=== PATIENT | female | born 1940 ===

== ENCOUNTER 2016-09-13 07:22 | Inpatient (IN) | payer MEDICARE, OTHER ==
[2016-09-09 12:09] VITALS: BMI 24.1
[2016-09-13] MEDS ORDERED: Lactated Ringer's 1,000 ML IV ONE ×2 (11:05→14:50)
[2016-09-13] MEDS ORDERED: Midazolam 2 MG/2 ML VIAL ONE (11:52)
[2016-09-13] MEDS ORDERED: ePHEDrine 50 mg/ml Inj ONE (11:52)
[2016-09-13] MEDS ORDERED: Propofol 10 mg/ml Inj (20 ML) ONE ×2 (11:52→14:48)
[2016-09-13] MEDS ORDERED: Succinylcholine 200 mg/10 ml Inj IV ONE (11:54)
[2016-09-13] MEDS ORDERED: Rocuronium 10 mg/ml (5 ml) ONE (12:38)
[2016-09-13] MEDS ORDERED: Dexamethasone 4 mg/1 ml ONE (13:08)
[2016-09-13] MEDS ORDERED: Labetalol 5mg/ml (4ml) ONE (13:41)
[2016-09-13] MEDS ORDERED: Ropivacaine 0.5% 30ML IV ONE (14:22)
[2016-09-13] MEDS ORDERED: Bupivacaine 0.5% 50 ML IJ ONE ×2 (14:48)
--- NOTE | 2016-09-13 15:29 | PCM.SURG1 ---
Surgeon's Initial Post Op Note - Surgeon's Notes Surgeon: Judy Sanchez MD Code Enforcement Officer: Umair Chiang MD; Bryan JACK; Aixa Elliott PA-C Type of Anesthesia: General Endo Pre-Operative Diagnosis: Right ankle bimalleolar fx Operative Findings: See op report Post-Operative Diagnosis: Same as pre-op Operation Performed: ORIF Right bimalleolar fx Specimen/Specimens Removed: None Estimated Blood Loss: EBL {In ML}: 20 Date of Surgery/Procedure: 09/13/16 Time of Surgery/Procedure: 13:30
[2016-09-13] MEDS ORDERED: Oxycodone/Acetaminophen 5/325 mg Tab PO PRN (15:38)
[2016-09-13] MEDS ORDERED: HYDROmorphone 0.5 mg/0.5 ml ISec ONE (15:47)
[2016-09-13] MEDS ORDERED: HYDROmorphone 0.5 mg/0.5 ml ISec IVP PRN (15:49)
[2016-09-13] MEDS ORDERED: Bupivacaine 0.5% Inj(30mL) ONE (15:56)
--- NOTE | 2016-09-13 15:59 | PCM.ANESB2 ---
Popliteal Nerve Block - Popliteal Nerve Block Date of Procedure: 09/13/16 Anesthesiologist: Sergei Pre-Procedure Diagnosis: ankle fracture right Post-Procedure Diagnosis: same Procedure Performed: Popliteal Nerve Block Right - Procedure Popliteal Nerve Block: This procedure was explained to the patient that it is for post-operative pain management. Consent was obtained after a thorough discussion with the patient regarding the benefits and possible complications of local anesthetic block of the sciatic nerve at the popliteal level. The patient was brought to the operating room and standard monitors are applied. Time-out was held with the circulating nurse to confirm the correct surgery and the appropriate block. After applying oxygen by nasal cannula and administering IV Sedation, patient's operative leg was gently raised and supported and the groove in between the biceps femoris and vastus lateralis muscles was carefully palpated. The skin approximately 8cm above the popliteal crease was then marked. The ultrasound transducer was then applied to the posterior thigh approximately 8cm above the popliteal crease in the transverse plane and the sciatic nerve before its division was visualized lateral to the popliteal artery and in between the bicep femoris and semimembranosus/semitendinosus muscles. After identification, the lateral portion of the thigh was prepped with Betadine solution three times and Lidocaine 1% was injected subcutaneously for topical anesthesia. At this point, a # 21 gauge Stimuplex insulated 4 inch needle was inserted into pre-marked area and advanced in a perpendicular direction. The needle was inserted above the ultrasound transducer in-plane towards the sciatic nerve in a [id number] direction. Needle advancement was performed carefully under direct ultrasound visualization. Nerve stimulator was used and dorsiflexion of the right foot was elicited at a current of _0.4____ MA. After repeated negative aspiration, _20____cc of _0.5____ % _ropivicaine was injected and this was flowed with cc of % . Under ultrasound guidance the local anesthetics were observed tenting the epidural sheath and surrounding the roots of the sciatic nerve. The needle was removed intact and sterile dressing was applied. The patient tolerated the popliteal nerve block well with stable vital signs and was subsequently prepared for the surgery.
--- NOTE | 2016-09-13 17:15 | RAD ---
PROCEDURE: Intraoperative Fluoroscopy. HISTORY: ORIF RIGHT ANKLE FINDINGS: Approximately 67.5 seconds of fluoroscopy time utilized during this procedure.
[2016-09-13 21:21] LABS: PARTIAL THROMBOPLASTIN TIME 27.9 SECONDS (23.3-32.5)
--- NOTE | 2016-09-14 08:47 | CP.PCM.HP ---
<Yuliya Jasmine - Last Filed: 09/14/16 10:13> History of Present Illness - History of Present Illness History of Present Illness: 75yo F with PMHx HTN, HLD admitted for right ankle fx. Pt evaluated at [facility] ED and right ankle XR showed Ankle mortise disruption with fractures of the medial and lateral malleoli and possible posterior malleolus fracture. Ortho was c/s in ED and to follow as outpt. Pt had ORIF performed 09/13/[address] Sanchez and tolerated procedure well PMHx: as above SHx: ORIF FHx: NC Allergies: NKDA Social Hx: denies x3 Present on Admission - Present on Admission Any Indicators Present on Admission: No Review of Systems - Constitutional Constitutional: absent: Chills, Fever - EENT Eyes: absent: Change in Vision - Cardiovascular Cardiovascular: absent: Chest Pain - Respiratory Respiratory: absent: Dyspnea - Gastrointestinal Gastrointestinal: absent: Abdominal Pain, Diarrhea, Nausea, Vomiting - Genitourinary Genitourinary: absent: Dysuria, Hematuria - Musculoskeletal Musculoskeletal: Other (right ankle pain). absent: Back Pain - Neurological Neurological: absent: Headaches Past Patient History - Infectious Disease Hx of Infectious Diseases: None - Past Medical History & Family History Past Medical History?: Yes - Past Social History Smoking Status: Former Smoker - CARDIAC Hx Cardiac Disorders: Yes Hx Hypercholesterolemia: Yes Hx Hypertension: Yes - PULMONARY Hx Respiratory Disorders: No - NEUROLOGICAL Hx Neurological Disorder: No - HEENT Hx HEENT Problems: No - RENAL Hx Chronic Kidney Disease: No - ENDOCRINE/METABOLIC Hx Endocrine Disorders: No - HEMATOLOGICAL/ONCOLOGICAL Hx Blood Disorders: Yes Hx Cancer: Yes (BREAST) - INTEGUMENTARY Hx Dermatological Problems: No - MUSCULOSKELETAL/RHEUMATOLOGICAL Hx Musculoskeletal Disorders: Yes Hx Arthritis: Yes Hx Back Pain: Yes Other/Comment: MUSCLE WEKNESS.LIMIT JOINT MOTION - GASTROINTESTINAL Hx Gastrointestinal Disorders: No - GENITOURINARY/GYNECOLOGICAL Hx Genitourinary Disorders: No - PSYCHIATRIC Hx Psychophysiologic Disorder: No Hx Substance Use: No - SURGICAL HISTORY Hx Surgeries: Yes Hx Section: Yes Hx Mastectomy: Yes (LEFT) - ANESTHESIA Hx Anesthesia: Yes Hx Anesthesia Reactions: No Hx Malignant Hyperthermia: No Has any member of the family had a problem w/ anesthesia?: No Meds Allergies/Adverse Reactions: Allergies Allergy/AdvReac Type Severity Reaction Status Date / Time No Known Allergies Allergy Verified 08/28/16 12:17 Physical Exam - Constitutional Appears: Non-toxic, No Acute Distress - Head Exam Head Exam: NORMAL INSPECTION - Eye Exam Eye Exam: Normal appearance - ENT Exam ENT Exam: Mucous Membranes Moist - Neck Exam Neck exam: Positive for: Normal Inspection - Respiratory Exam Respiratory Exam: Clear to Auscultation Bilateral - Cardiovascular Exam Cardiovascular Exam: REGULAR RHYTHM - GI/Abdominal Exam GI & Abdominal Exam: Normal Bowel Sounds, Soft - Extremities Exam Extremities exam: Positive for: normal inspection. Negative for: pedal edema Additional comments: cast to right ankle cap refill < 2 sec - Neurological Exam Neurological exam: Alert, Oriented x3 Additional comments: sensation/motor grossly intact to right toes - Skin Skin Exam: Dry, Warm Results - Vital Signs Recent Vital Signs: Last Vital Signs Temp 98.1 F 09/14/16 07:24 Pulse 75 09/14/16 07:24 Resp 18 09/14/16 07:24 BP 131/66 09/14/16 07:24 Pulse Ox 95 09/14/16 07:24 - Labs Result Diagrams: 09/14/16 09:40 Labs: Laboratory Results - last 24 hr 09/13/16 20:30 PT 10.6 INR 1.02 APTT 27.9 Assessment & Plan - Assessment and Plan (Free Text) Assessment: 75yo F with PMHx HTN, HLD admitted for right ankle fx. Right ankle fx -s/p ORIF -right ankle XR: Ankle mortise disruption with fractures of the medial and lateral malleoli and possible posterior malleolus fracture. -pain control, will decrease from q4hr to q6hr as tolerated HTN c/w home meds: amlodipine, Diovan HLD -c/w statin DVT ppx Dispo: TCU Decision To Admit - Pt Status Changed To: Hospital Disposition Of: Inpatient - Admit Certification Admit to Inpatient:: After my assessment, the patient will require hospitalization for at least two midnights. This is because of the severity of symptoms shown, intensity of services needed, and/or the medical risk in this patient being treated as an outpatient. - . Bed Request Type: Med/Surg Admitting Physician: James Soriano <James Soriano - Last Filed: 09/18/16 21:23> Results - Vital Signs Recent Vital Signs: Last Vital Signs Temp 98.4 F 09/18/16 21:20 Pulse 70 09/18/16 21:20 Resp 20 09/18/16 21:20 BP 114/76 09/18/16 21:20 Pulse Ox 96 09/18/16 21:20 - Labs Result Diagrams: 09/17/16 07:30 09/17/16 07:30 Labs: Laboratory Results - last 24 hr 09/18/16 09/18/16 09/18/16 06:14 11:06 16:16 POC Glucose (mg/dL) 155 H 131 H 128 H Assessment & Plan - Assessment and Plan (Free Text) Plan: I was present during evaluation and personally examined patient. Discussed with Dr Yuliya villasenor plans of care, pain mgt and phys therapy
--- NOTE | 2016-09-14 08:48 | CP.PCM.PN ---
Subjective - Date & Time of Evaluation Date of Evaluation: 09/14/16 Time of Evaluation: 08:30 - Subjective Subjective: 75 yo female patient was seen at bedside this morning 1 day s/p ORIF of Right bimalleolar fracture. Patient was resting comfortably in bed with Right lower extremity elevated. Dressing to right lower extremity remains clean dry and intact. Patient denies of any acute overnight distress. Patient was advised to call Dr. Sanchez for scheduling upon discharge. Patient denies of any N/V/F/C or SOB today. Objective - Vital Signs/Intake and Output Vital Signs (last 24 hours): Temp Pulse Resp BP Pulse Ox 98.1 F 75 18 131/66 95 09/14/16 07:24 09/14/16 07:24 09/14/16 07:24 09/14/16 07:24 09/14/16 07:24 - Medications Medications: Current Medications Acetaminophen (Tylenol 325mg Tab) 650 mg PO Q4 PRN PRN Reason: Pain, Mild (1-3) Amlodipine Besylate (Norvasc) 5 mg PO DAILY [facility] Last Admin: 09/14/16 08:23 Dose: 5 mg Atorvastatin Calcium (Lipitor) 40 mg PO HS [facility] Last Admin: 09/13/16 22:40 Dose: Not Given Donepezil HCl (Aricept) 5 mg PO HS [facility] Last Admin: 09/13/16 22:40 Dose: Not Given Enoxaparin Sodium (Lovenox) 40 mg SC DAILY [facility] PRN Reason: Protocol Hydrochlorothiazide (Microzide) 12.5 mg PO DAILY [facility] Last Admin: 09/14/16 08:23 Dose: 12.5 mg Hydromorphone HCl (Dilaudid) 0.5 mg IVP Q5M PRN PRN Reason: Pain, moderate (4-7) Last Admin: 09/13/16 15:40 Dose: 0.5 mg Meclizine HCl (Antivert) 25 mg PO Q6 PRN PRN Reason: Nausea/Vomiting Naproxen (Naprosyn Tab) 375 mg PO BID PRN PRN Reason: pain Oxycodone/Acetaminophen (Percocet 5/325 Mg Tab) 1 tab PO Q4 PRN PRN Reason: Pain, moderate (4-7) Stop: 09/16/16 15:39 Oxycodone/Acetaminophen (Percocet 5/325 Mg Tab) 2 tab PO Q4 PRN PRN Reason: Pain, severe (8-10) Stop: 09/16/16 15:39 Pneumococcal Polyvalent Vaccine (Pneumovax 23 Vaccine) 0.5 ml IM .ONCE ONE Stop: 09/14/16 09:01 Valsartan (Diovan) 160 mg PO DAILY [facility] Last Admin: 09/14/16 08:23 Dose: 160 mg - Labs Labs: PT 10.6 SECONDS (9.6-11.2) 09/13/16 20:30 INR 1.02 (0.92-1.08) 09/13/16 20:30 APTT 27.9 SECONDS (23.3-32.5) 09/13/16 20:30 - Constitutional Appears: Well, Non-toxic, No Acute Distress - Extremities Exam Additional comments: Right lower extremity posterior splint remains clean, dry and intact - Neurological Exam Neurological Exam: Alert, Awake, Oriented x3 - Psychiatric Exam Psychiatric exam: Normal Affect, Normal Mood - Skin Skin Exam: Normal Color, Warm Assessment and Plan - Assessment and Plan (Free Text) Assessment: 75 yo female patient 1 day s/p ORIF of right ankle bimalleolar fx Plan: Patient was seen, evaluated and treated with all questions and concerns addressed labs and vitals reviewed discussed in detail with Dr. Sanchez Patient was advised to keep the dressing clean, dry and intact until she sees Dr. Sanchez Patient safe to be discharged once cleared by Physical therapy Patient will follow up with Dr. Sanchez upon discharge
[2016-09-14] MEDS ORDERED: HYDROCHLOROTHIAZIDE PO SCH (09:00)
[2016-09-14] MEDS ORDERED: Pneumococcal 23-Valent Vaccine IM ONE (09:00)
[2016-09-14] MEDS ORDERED: VALSARTAN PO SCH (09:00)
[2016-09-14 10:00] LABS: BASO % 0.4 % (0.0-2.0); EOS % 0.1 % (0.0-4.0); HEMATOCRIT 36.8 % (34.0-47.0); LYMPH # 1.7 K/uL (1.0-4.3); LYMPH % 13.7 % (20.0-40.0); MEAN CELL VOLUME 88.6 fl (81.0-99.0); MEAN CORPUSCULAR HEMOGLOBIN 28.8 pg (27.0-31.0); MEAN CORPUSCULAR HGB CONC 32.5 g/dL (33.0-37.0); MEAN PLATELET VOLUME 8.1 fl (7.2-11.7); MONO # 0.8 K/uL (0.0-0.8); MONO % 6.1 % (0.0-10.0); NEUT # 9.8 K/uL (1.8-7.0); NEUT % 79.7 % (50.0-75.0); RED CELL DISTRIBUTION WIDTH 13.6 % (11.5-14.5); WHITE BLOOD COUNT 12.3 K/uL (4.8-10.8)
[2016-09-14 10:16] LABS: ALKALINE PHOSPHATASE 94 U/L (38-126); ALT/SGPT 17 U/L (9-52); AST/SGOT 22 U/L (14-36); BILIRUBIN,TOTAL 0.4 mg/dl (0.2-1.3); BLOOD UREA NITROGEN 20 mg/dl (7-17); CALCIUM 9.4 mg/dL (8.4-10.2); CARBON DIOXIDE 25 mmol/L (22-30); CHLORIDE 100 mmol/L (98-107); GFR AFRICAN-AMERICAN > 60; GLUCOSE,RANDOM 256 mg/dL (65-105); POTASSIUM 4.5 MMOL/L (3.6-5.0); SODIUM 137 mmol/l (132-148); TOTAL PROTEIN 6.8 G/DL (6.3-8.2)
--- NOTE | 2016-09-14 13:50 | RAD ---
PROCEDURE: Right Ankle Radiographs. HISTORY: s/p right ankle ORIF COMPARISON: No preoperative studies available. FINDINGS: BONES: Satisfactory position alignment of major fracture fragments distal tibia and fibula. Orthopedic hardware in satisfactory position including febrile air endplate and multiple partially fenestrated screws distal tibia. JOINTS: Mild degenerative changes talotibial and talofibular joint spaces. SOFT TISSUES: Normal. OTHER FINDINGS: None. IMPRESSION: No acute findings related to/accounting for the clinical presentation.
[2016-09-15] MEDS: Oxycodone/Acetaminophen 5/325 mg Tab PO PRN (04:51)
[2016-09-15 07:03] LABS: HEMATOCRIT 36.2 % (34.0-47.0); MEAN CELL VOLUME 88.1 fl (81.0-99.0); MEAN CORPUSCULAR HEMOGLOBIN 28.7 pg (27.0-31.0); MEAN CORPUSCULAR HGB CONC 32.6 g/dL (33.0-37.0); RED CELL DISTRIBUTION WIDTH 13.3 % (11.5-14.5)
[2016-09-15 07:08] LABS: BLOOD UREA NITROGEN 16 mg/dl (7-17); CARBON DIOXIDE 30 mmol/L (22-30); CHLORIDE 98 mmol/L (98-107); GFR AFRICAN-AMERICAN > 60; GLUCOSE,RANDOM 187 mg/dL (65-105); POTASSIUM 4.2 MMOL/L (3.6-5.0); SODIUM 137 mmol/l (132-148)
--- NOTE | 2016-09-15 09:10 | OP ---
PROCEDURE DATE: 09/13/2016 SURGEON: Dr. Sanchez ASSISTANTS: Umair Garnett, PGY-2 and Mami Hendrickson, PGY-1 IRRIGATOR GRAVITY FLOW: Dr. Mai ANESTHESIA: General endo and regional block. PREOPERATIVE DIAGNOSIS: Right ankle closed bimalleolar fracture. POSTOPERATIVE DIAGNOSIS: Right ankle closed bimalleolar fracture. NAME OF THE PROCEDURE: Open reduction with internal fixation of the right ankle. INDICATIONS: The patient is a 75-year-old female with the above diagnosis. This patient slipped and fell and acquired a right ankle fracture approximately 1 month ago, which needed surgery to stabilize her ankle. The patient signed the consent after careful explanation of risks, benefits, complications and alternatives for surgical procedure. No guarantees were given nor implied. One gram of Ancef IV was given to patient prior to the surgery. N.p.o. status was confirmed prior to taking patient to the OR. PREPARATION: The patient was brought to the operating room and placed on the operating room table in supine position. A well-padded pneumatic thigh tourniquet was placed to the patient's right lower extremity. After induction of general anesthesia, the right lower extremity was then prepped and draped in usual sterile manner. Esmarch was utilized to exsanguinate the patient's right lower extremity. Pneumatic thigh tourniquet was then inflated to 250 mmHg and procedure began. DESCRIPTION OF PROCEDURE: Open reduction with internal fixation of the right ankle. Attention was directed to the lateral aspect of the right ankle and the fracture site was confirmed under the intraoperative fluoroscopy. An approximately 7 cm linear longitudinal incision was made overlying fibula centered right over the bone. At this time, the incision was carried deep using sharp and blunt dissection, taking care to retract all vital neurovascular structures. All bleeders were cauterized and ligated as necessary. At the level of the periosteum, a sharp periosteal incision was made overlying the distal fibula to allow exposure to the fracture site. The periosteum was reflected with a sharp periosteal elevator to allow for visualization of the fracture site at this time. Next, utilizing bone clamp, the fracture site was reduced bringing the distal fibula back out to length. At this time, it was noted that there was comminution of the fracture site and a lag screw was placed from anteroproximal to posterodistal with excellent fixation. However, patient's bone quality was really poor. At this time, a Synthes 4-hole 2.7 mm LCP plate was placed over the fracture site and utilizing standard AO technique and plate holes were filled with 2.7 locking screws and 3.5 cortex screw. At this time, multiple irrigations were performed. All the screw locations were confirmed under the intraoperative fluoroscopy. Attention was redirected to the medial aspect of the distal tibia of the right lower extremity. Utilizing a #15 blade, an approximately 5 cm curvilinear incision was made overlying the tibia staying centered right over the bone. At this time , the incision was carried deep using sharp and blunt dissection, taking care to retract all vital neurovascular structures. All bleeders were cauterized and ligated as necessary. At this level of the periosteum, a sharp periosteal incision was made overlying the distal tibia to allow exposure to the fracture site. The periosteum was reflected with a sharp periosteal elevator to allow for visualization of the fracture site. Next, utilizing bone clamp, the fracture site was reduced bringing the distal medial malleolus back out to length and was temporarily fixated with 2 K-wires. Next, based on AO technique and principal, the fracture site was fixed with 4 mm and 3.5 mm cannulated screws. Next, temporarily fixated K-wires were removed. The screw locations were confirmed under intraoperative fluoroscopy and once again patient's bone quality was really poor, so could not have excellent compression. The surgical site was irrigated with a copious amount of normal sterile saline. Deep tissues were reapproximated with #3-0 and 4-0 Vicryl and skin was reapproximated with #4-0 nylon in vertical mattress suture technique. Medial aspect of the right ankle was infiltrated with 10 mL of 0.5% Marcaine plain. Right lower extremity was dressed with Xeroform, 4 x 4, Kerlix and posterior splint. The patient will be nonweightbearing for 6 weeks. The attending was present during the case. POSTOPERATIVE CONDITION: The patient tolerated the anesthesia and procedure well and was escorted to the recovery room with vital signs stable and neurovascular status intact to the right foot. The patient will follow with Dr. Sanchez. Umair Garnett DPM Latanya Sanchez MD cc: [id number] TT: 09/15/2016 07:45:08 en MTDD
[2016-09-15] MEDS: Enoxaparin 40 mg Syringe SC SCH (09:13)
--- NOTE | 2016-09-15 09:16 | OP ---
PROCEDURE DATE: 09/13/2016 SURGEON: Dr. Sanchez. TRANSPORTATION CLERK: Umair Garnett, PGY-2; Mami Hendrickson, PGY-1. BOAT TESTER: Dr. Laura. ANESTHESIA: General anesthesia and regional block. PREOPERATIVE DIAGNOSIS: Right ankle closed bimalleolar fracture. POSTOPERATIVE DIAGNOSIS: Right ankle closed bimalleolar fracture. NAME OF THE PROCEDURE: Open reduction with internal fixation of the right ankle. INDICATIONS: The patient is a 75-year-old female with the above diagnosis. This patient slipped and fell and acquired right ankle fracture approximately 1 month ago which needed surgery to stabilize h er ankle. The patient signed the consent after careful explanation of risks, benefits, complication and alternative for surgical procedure. No guarantees were given nor implied. 1 gram of Ancef IV wa s given to the patient half hour prior to the procedure. N.p.o. status was confirmed prior to taking patient to the OR. PREPARATION: The patient was brought to the operating room and placed on the operating room table in supine position. A well-padded pneumatic thigh tourniquet was placed to the patient's right lower e xtremity. After induction of general anesthesia, the right lower extremity was then prepped and drap ed in usual sterile manner. Esmarch was utilized to exsanguinate the patient's right lower extremity . Pneumatic thigh tourniquet was then inflated to 350 mmHg and procedure began. PROCEDURE: OPEN REDUCTION WITH INTERNAL FIXATION OF THE RIGHT ANKLE: Attention was directed to the lateral aspect of the right ankle and the fracture site was confirmed under the intraoperative fluoro scopy. Approximately a 7 cm linear longitudinal incision was made overlying fibula, staying central right over the bone. At this time, the incision was carried deep using sharp and blunt dissection, t aking care to retract all vital neurovascular structures. All bleeders were cauterized and ligated a s necessary. At the level of the periosteum, a sharp periosteal incision was made overlying the dist al fibula to allow exposure to the fracture site. The periosteum was reflected with a sharp perioste al elevator to allow for visualization of the fracture site at this time. Utilizing bone clamp, the fracture site was reduced bringing the distal fibula back out to length. At this time, it was noted that there was comminution of the fracture site and the lag screw was placed from anterior proximal t o posterior distal with excellent fixation. Next, utilizing 3.5 cortex screw was inserted. However, the patient's bone quality was really poor. At this time, a Synthes 4-hole 2.7 mm LCP plate was dayna lelo over the fracture site and, utilizing standard AO technique and principal, holes were filled with 2.7 locking screws and 3.5 cortex screw. Next, multiple irrigations were performed. All the screw locations were confirmed under the intraoperative fluoroscopy. Attention was then redirected to the medial aspect of all the distal tibia of the right lower extremi ty. Utilizing a #15 blade, an approximately 5 cm curvilinear incision was made overlying the tibia s taying center right over the bone. At this time, the incision was carried deep using sharp and blunt dissection, taking care to retract all vital and neurovascular structures. All bleeders were cauter ized and ligated as necessary. At the level of the periosteum, the sharp periosteal incision was mad e overlying the distal tibia to allow exposure to the fracture site. The periosteum was reflected wi th a sharp periosteal elevator to allow for visualization of the fracture site. Next, utilizing bone clamp, fracture site was reduced bringing the distal medial malleolus back out to the length and was temporarily fixated with 2 K-wires. Next, based on AO techniques and principles, the fracture site was fixed with 40 mm and 3.5 mm cannulated screws. Next, temporary fixated K-wires were removed. Th e screw locations were confirmed under intraoperative fluoroscopy and, once again, the patient's bone quality was really poor so could not have excellent compression. The surgical site was irrigated wi th a copious amount of normal sterile saline. All deep tissues of all the surgical sites were reappr oximated with #3-0 and 4-0 Vicryl, and skin was reapproximated with #4-0 nylon as vertical mattress s uture technique. Medial aspect of the right ankle was infiltrated with 10 mL of 0.5% Marcaine plain and the right lower extremity was dressed with Xeroform, 4 x 4, Kerlix and a posterior splint. The p atient will be nonweightbearing for the next 6 weeks. Attending was present during the case. POSTOPERATIVE CONDITION: The patient tolerated the anesthesia and procedure well and was escorted to the recovery room with vital signs stable and neurovascular status intact to the right lower extremi ty. This patient will follow with Dr. Sanchez. Umair Garnett DPM Judy Sanchez MD cc: [id number] TT: 09/14/2016 07:54:01 ne 09/15/2016 08:15:52
--- NOTE | 2016-09-15 12:33 | CP.PCM.PN ---
Addendum entered and electronically signed by Yuliya Jasmine MD 09/15/16 12:35: A/P: DM -HgbA1c 8.4 -pt reports prior PO agents, none on ambulatory orders -start metformin and januvia Original Note: <Yuliya Jasmine - Last Filed: 09/15/16 12:30> Subjective - Date & Time of Evaluation Date of Evaluation: 09/15/16 Time of Evaluation: 12:30 - Subjective Subjective: evaluated with attending. right ankle pain controlled. tolerating PO. Denies chest pain, SOB, abd pain. Objective - Vital Signs/Intake and Output Vital Signs (last 24 hours): Temp Pulse Resp BP Pulse Ox 98.2 F 69 18 143/62 94 L 09/15/16 07:31 09/15/16 09:13 09/15/16 07:31 09/15/16 09:13 09/15/16 07:31 - Medications Medications: Current Medications Acetaminophen (Tylenol 325mg Tab) 650 mg PO Q4 PRN PRN Reason: Pain, Mild (1-3) Amlodipine Besylate (Norvasc) 5 mg PO DAILY [facility] Last Admin: 09/15/16 09:13 Dose: 5 mg Atorvastatin Calcium (Lipitor) 40 mg PO HS [facility] Last Admin: 09/14/16 21:09 Dose: 40 mg Docusate Sodium (Colace) 100 mg PO BID [facility] Donepezil HCl (Aricept) 5 mg PO HS [facility] Last Admin: 09/14/16 21:09 Dose: 5 mg Enoxaparin Sodium (Lovenox) 40 mg SC DAILY [facility] PRN Reason: Protocol Last Admin: 09/15/16 09:13 Dose: 40 mg Hydrochlorothiazide (Microzide) 12.5 mg PO DAILY [facility] Last Admin: 09/15/16 09:13 Dose: 12.5 mg Hydromorphone HCl (Dilaudid) 0.5 mg IVP Q5M PRN PRN Reason: Pain, moderate (4-7) Last Admin: 09/13/16 15:40 Dose: 0.5 mg Insulin Human Regular (Humulin R) 0 units SC [facility] PRN Reason: Protocol Lorazepam (Ativan) 1 mg PO BID PRN PRN Reason: Agitation Meclizine HCl (Antivert) 25 mg PO Q6 PRN PRN Reason: Nausea/Vomiting Metformin HCl (Glucophage) 500 mg PO BIDWM [facility] Last Admin: 09/15/16 10:37 Dose: 500 mg Naproxen (Naprosyn Tab) 375 mg PO BID PRN PRN Reason: pain Oxycodone/Acetaminophen (Percocet 5/325 Mg Tab) 1 tab PO Q4 PRN PRN Reason: Pain, moderate (4-7) Stop: 09/16/16 15:39 Last Admin: 09/14/16 13:07 Dose: 1 tab Oxycodone/Acetaminophen (Percocet 5/325 Mg Tab) 2 tab PO Q4 PRN PRN Reason: Pain, severe (8-10) Stop: 09/16/16 15:39 Last Admin: 09/15/16 04:51 Dose: 2 tab Sitagliptin Phosphate (Januvia) 100 mg PO DAILY [facility] Last Admin: 09/15/16 10:37 Dose: 100 mg Valsartan (Diovan) 160 mg PO DAILY [facility] Last Admin: 09/15/16 09:12 Dose: 160 mg - Labs Labs: 09/15/16 06:30 09/15/16 06:30 PT 10.6 SECONDS (9.6-11.2) 09/13/16 20:30 INR 1.02 (0.92-1.08) 09/13/16 20:30 APTT 27.9 SECONDS (23.3-32.5) 09/13/16 20:30 - Constitutional Appears: Non-toxic, No Acute Distress - Head Exam Head Exam: ATRAUMATIC, NORMAL INSPECTION - Eye Exam Eye Exam: Normal appearance - ENT Exam ENT Exam: Mucous Membranes Moist - Neck Exam Neck Exam: Normal Inspection - Respiratory Exam Respiratory Exam: Clear to Ausculation Bilateral - Cardiovascular Exam Cardiovascular Exam: REGULAR RHYTHM - GI/Abdominal Exam GI & Abdominal Exam: Soft, Normal Bowel Sounds - Extremities Exam Extremities Exam: Normal Inspection Additional comments: right ankle casted - Neurological Exam Neurological Exam: Alert, Oriented x3 Additional comments: motor/sensation grossly intact in right foot - Skin Skin Exam: Dry, Warm Assessment and Plan - Assessment and Plan (Free Text) Assessment: 75yo F with PMHx HTN, HLD admitted for right ankle fx. Right ankle fx -s/p ORIF -right ankle XR: Ankle mortise disruption with fractures of the medial and lateral malleoli and possible posterior malleolus fracture. -pain control, will decrease from q4hr to q6hr as tolerated HTN c/w home meds: amlodipine, Diovan HLD -c/w statin DVT ppx -lovenox Dispo: PT/OT-reccommend TCU, not accepted. Waiting for [facility]Y bed. <James Soriano - Last Filed: 09/18/16 21:23> Objective - Vital Signs/Intake and Output Vital Signs (last 24 hours): Temp Pulse Resp BP Pulse Ox 98.4 F 70 20 114/76 96 09/18/16 21:20 09/18/16 21:20 09/18/16 21:20 09/18/16 21:20 09/18/16 21:20 - Medications Medications: Current Medications Acetaminophen (Tylenol 325mg Tab) 650 mg PO Q4 PRN PRN Reason: Pain, Mild (1-3) Last Admin: 09/18/16 20:13 Dose: 650 mg Amlodipine Besylate (Norvasc) 5 mg PO DAILY [facility] Last Admin: 09/18/16 08:36 Dose: 5 mg Atorvastatin Calcium (Lipitor) 40 mg PO HS [facility] Last Admin: 09/17/16 21:07 Dose: 40 mg Docusate Sodium (Colace) 100 mg PO BID [facility] Last Admin: 09/18/16 16:51 Dose: 100 mg Donepezil HCl (Aricept) 5 mg PO HS [facility] Last Admin: 09/17/16 21:07 Dose: 5 mg Enoxaparin Sodium (Lovenox) 40 mg SC DAILY [facility] PRN Reason: Protocol Last Admin: 09/18/16 08:33 Dose: 40 mg Hydrochlorothiazide (Microzide) 12.5 mg PO DAILY [facility] Last Admin: 09/18/16 08:36 Dose: 12.5 mg Insulin Human Regular (Humulin R) 0 units SC [facility] PRN Reason: Protocol Last Admin: 09/18/16 16:51 Dose: Not Given Lorazepam (Ativan) 1 mg PO BID PRN PRN Reason: Agitation Meclizine HCl (Antivert) 25 mg PO Q6 PRN PRN Reason: Nausea/Vomiting Last Admin: 09/17/16 12:41 Dose: 25 mg Metformin [facility] (Gluc[facility]) [facility] [place] Admin: 09/18/16 16:51 Dose: 500 mg Naproxen (Naprosyn Tab) 375 mg PO BID PRN PRN Reason: pain Last Admin: 09/17/16 02:22 Dose: 375 mg Sitagliptin Phosphate (Januvia) 100 mg PO DAILY [facility] Last Admin: 09/18/16 08:34 Dose: 100 mg Valsartan (Diovan) 160 mg PO DAILY [facility] Last Admin: 09/18/16 08:35 Dose: 160 mg - Labs Labs: 09/17/16 07:30 09/17/16 07:30 PT 10.6 SECONDS (9.6-11.2) 09/13/16 20:30 INR 1.02 (0.92-1.08) 09/13/16 20:30 APTT 27.9 SECONDS (23.3-32.5) 09/13/16 20:30 Assessment and Plan - Assessment and Plan (Free Text) Plan: I was present during evaluyation and discussed with DR Dwyer re plans of care. James Soriano M.D.
[2016-09-15] MEDS: Insulin Regular 100 units/ml SC SCH ×3 (12:55→21:29)
[2016-09-16] MEDS: Oxycodone/Acetaminophen 5/325 mg Tab PO PRN ×2 (05:13→09:19)
[2016-09-16] MEDS: Insulin Regular 100 units/ml SC SCH ×4 (06:34→21:44)
[2016-09-16 06:50] LABS: HEMATOCRIT 38.7 % (34.0-47.0); MEAN CELL VOLUME 87.8 fl (81.0-99.0); MEAN CORPUSCULAR HEMOGLOBIN 28.8 pg (27.0-31.0); MEAN CORPUSCULAR HGB CONC 32.8 g/dL (33.0-37.0); RED CELL DISTRIBUTION WIDTH 13.2 % (11.5-14.5); WHITE BLOOD COUNT 12.5 K/uL (4.8-10.8)
[2016-09-16 07:23] LABS: ALKALINE PHOSPHATASE 105 U/L (38-126); ALT/SGPT 24 U/L (9-52); AST/SGOT 23 U/L (14-36); BILIRUBIN,TOTAL 0.7 mg/dl (0.2-1.3); BLOOD UREA NITROGEN 21 mg/dl (7-17); CALCIUM 9.4 mg/dL (8.4-10.2); CARBON DIOXIDE 30 mmol/L (22-30); CHLORIDE 95 mmol/L (98-107); GFR AFRICAN-AMERICAN > 60; GLUCOSE,RANDOM 185 mg/dL (65-105); POTASSIUM 4.7 MMOL/L (3.6-5.0); SODIUM 134 mmol/l (132-148); TOTAL PROTEIN 6.9 G/DL (6.3-8.2)
--- NOTE | 2016-09-16 07:35 | CP.PCM.PN ---
<Yuliya Jasmine - Last Filed: 09/16/16 10:12> Subjective - Date & Time of Evaluation Date of Evaluation: 09/16/16 Time of Evaluation: 07:35 - Subjective Subjective: evaluated with attending. no overnight events. Has not tried walking with PT yet. eating, drinking, making urine. Denies chest pain, SOB, abd pain. right ankle pain controlled. c/o right thigh pain intermittently, controlled with perc , denies swelling, x2 days. Objective - Vital Signs/Intake and Output Vital Signs (last 24 hours): Temp Pulse Resp BP Pulse Ox 98.5 F 81 19 115/69 93 L 09/16/16 00:13 09/16/16 00:13 09/16/16 00:13 09/16/16 00:13 09/16/16 00:13 - Medications Medications: Current Medications Acetaminophen (Tylenol 325mg Tab) 650 mg PO Q4 PRN PRN Reason: Pain, Mild (1-3) Amlodipine Besylate (Norvasc) 5 mg PO DAILY [facility] Last Admin: 09/15/16 09:13 Dose: 5 mg Atorvastatin Calcium (Lipitor) 40 mg PO HS [facility] Last Admin: 09/15/16 21:05 Dose: 40 mg Docusate Sodium (Colace) 100 mg PO BID [facility] Last Admin: 09/15/16 17:30 Dose: 100 mg Donepezil HCl (Aricept) 5 mg PO HS [facility] Last Admin: 09/15/16 21:05 Dose: 5 mg Enoxaparin Sodium (Lovenox) 40 mg SC DAILY [facility] PRN Reason: Protocol Last Admin: 09/15/16 09:13 Dose: 40 mg Hydrochlorothiazide (Microzide) 12.5 mg PO DAILY [facility] Last Admin: 09/15/16 09:13 Dose: 12.5 mg Hydromorphone HCl (Dilaudid) 0.5 mg IVP Q5M PRN PRN Reason: Pain, moderate (4-7) Last Admin: 09/13/16 15:40 Dose: 0.5 mg Insulin Human Regular (Humulin R) 0 units SC [facility] PRN Reason: Protocol Last Admin: 09/16/16 06:34 Dose: 1 units Lorazepam (Ativan) 1 mg PO BID PRN PRN Reason: Agitation Meclizine HCl (Antivert) 25 mg PO Q6 PRN PRN Reason: Nausea/Vomiting Metformin HCl (Glucophage) 500 mg PO BIDWM [facility] Last Admin: 09/15/16 17:25 Dose: 500 mg Naproxen (Naprosyn Tab) 375 mg PO BID PRN PRN Reason: pain Oxycodone/Acetaminophen (Percocet 5/325 Mg Tab) 1 tab PO Q4 PRN PRN Reason: Pain, moderate (4-7) Stop: 09/16/16 15:39 Last Admin: 09/14/16 13:07 Dose: 1 tab Oxycodone/Acetaminophen (Percocet 5/325 Mg Tab) 2 tab PO Q4 PRN PRN Reason: Pain, severe (8-10) Stop: 09/16/16 15:39 Last Admin: 09/16/16 05:13 Dose: 2 tab Sitagliptin Phosphate (Januvia) 100 mg PO DAILY [facility] Last Admin: 09/15/16 10:37 Dose: 100 mg Valsartan (Diovan) 160 mg PO DAILY [facility] Last Admin: 09/15/16 09:12 Dose: 160 mg - Labs Labs: 09/16/16 06:10 09/16/16 06:10 PT 10.6 SECONDS (9.6-11.2) 09/13/16 20:30 INR 1.02 (0.92-1.08) 09/13/16 20:30 APTT 27.9 SECONDS (23.3-32.5) 09/13/16 20:30 - Constitutional Appears: Non-toxic, No Acute Distress - Head Exam Head Exam: ATRAUMATIC, NORMAL INSPECTION - Eye Exam Eye Exam: Normal appearance - ENT Exam ENT Exam: Mucous Membranes Moist - Neck Exam Neck Exam: Normal Inspection - Respiratory Exam Respiratory Exam: Clear to Ausculation Bilateral - Cardiovascular Exam Cardiovascular Exam: REGULAR RHYTHM - GI/Abdominal Exam GI & Abdominal Exam: Soft, Normal Bowel Sounds - Extremities Exam Extremities Exam: Normal Inspection. absent: Pedal Edema Additional comments: RLE: no swelling, TTP right thigh - Back Exam Back Exam: NORMAL INSPECTION - Neurological Exam Neurological Exam: Alert, Oriented x3 Additional comments: sensation/motor right foot grossly intact - Skin Skin Exam: Dry, Warm Assessment and Plan - Assessment and Plan (Free Text) Assessment: 75yo F with PMHx HTN, HLD admitted for right ankle fx. Right ankle fx -s/p ORIF -right ankle XR: Ankle mortise disruption with fractures of the medial and lateral malleoli and possible posterior malleolus fracture. -pain control, will decrease from q4hr to q6hr as tolerated -encouraged to ambulate with PT right thigh pain -controlled with percocet -no swelling, will order duplex RLE if swelling occurs HTN -c/w home meds: amlodipine, Diovan HLD -c/w statin DM -HgbA1c 8.4 -c/w metformin and januvia DVT ppx -lovenox Dispo: PT/OT-reccommend TCU, not accepted. Waiting for SUZY bed and insurance approval <James Soriano - Last Filed: 09/18/16 21:27> Objective - Vital Signs/Intake and Output Vital Signs (last 24 hours): Temp Pulse Resp BP Pulse Ox 98.4 F 70 20 114/76 96 09/18/16 21:20 09/18/16 21:20 09/18/16 21:20 09/18/16 21:20 09/18/16 21:20 - Medications Medications: Current Medications Acetaminophen (Tylenol 325mg Tab) 650 mg PO Q4 PRN PRN Reason: Pain, Mild (1-3) Last Admin: 09/18/16 20:13 Dose: 650 mg Amlodipine Besylate (Norvasc) 5 mg PO DAILY [facility] Last Admin: 09/18/16 08:36 Dose: 5 mg Atorvastatin Calcium (Lipitor) 40 mg PO HS [facility] Last Admin: 09/17/16 21:07 Dose: 40 mg Docusate Sodium (Colace) 100 mg PO BID [facility] Last Admin: 09/18/16 16:51 Dose: 100 mg Donepezil HCl (Aricept) 5 mg PO HS [facility] Last Admin: 09/17/16 21:07 Dose: 5 mg Enoxaparin Sodium (Lovenox) 40 mg SC DAILY [facility] PRN Reason: Protocol Last Admin: 09/18/16 08:33 Dose: 40 mg Hydrochlorothiazide (Microzide) 12.5 mg PO DAILY [facility] Last Admin: 09/18/16 08:36 Dose: 12.5 mg Insulin Human Regular (Humulin R) 0 units SC [facility] PRN Reason: Protocol Last Admin: 09/18/16 16:51 Dose: Not Given Lorazepam (Ativan) 1 mg PO BID PRN PRN Reason: Agitation Meclizine HCl (Antivert) 25 mg PO Q6 PRN PRN Reason: Nausea/Vomiting Last Admin: 09/17/16 12:41 Dose: 25 mg Metformin HCl (Glucophage) 500 mg PO BIDWM [facility] Last Admin: 09/18/16 16:51 Dose: 500 mg Naproxen (Naprosyn Tab) 375 mg PO BID PRN PRN Reason: pain Last Admin: 09/17/16 02:22 Dose: 375 mg Sitagliptin Phosphate (Januvia) 100 mg PO DAILY [facility] Last Admin: 09/18/16 08:34 Dose: 100 mg Valsartan (Diovan) 160 mg PO DAILY [facility] Last Admin: 09/18/16 08:35 Dose: 160 mg - Labs Labs: 09/17/16 07:30 09/17/16 07:30 PT 10.6 SECONDS (9.6-11.2) 09/13/16 20:30 INR 1.02 (0.92-1.08) 09/13/16 20:30 APTT 27.9 SECONDS (23.3-32.5) 09/13/16 20:30 Assessment and Plan - Assessment and Plan (Free Text) Plan: I was present during evaluation and discussed with Dr Yuliya villasenor plans of care. James Soriano M.D.
[2016-09-16] MEDS: Enoxaparin 40 mg Syringe SC SCH (09:11)
[2016-09-17] MEDS: Insulin Regular 100 units/ml SC SCH ×4 (07:30→21:10)
[2016-09-17 08:49] LABS: HEMATOCRIT 36.6 % (34.0-47.0); MEAN CELL VOLUME 87.2 fl (81.0-99.0); MEAN CORPUSCULAR HEMOGLOBIN 28.7 pg (27.0-31.0); MEAN CORPUSCULAR HGB CONC 32.9 g/dL (33.0-37.0); RED CELL DISTRIBUTION WIDTH 13.2 % (11.5-14.5); WHITE BLOOD COUNT 10.6 K/uL (4.8-10.8)
[2016-09-17 09:03] LABS: CALCIUM 9.3 mg/dL (8.4-10.2); POTASSIUM 4.7 MMOL/L (3.6-5.0)
[2016-09-17] MEDS: Enoxaparin 40 mg Syringe SC SCH (09:07)
--- NOTE | 2016-09-17 12:27 | CP.PCM.PN ---
Subjective - Date & Time of Evaluation Date of Evaluation: 09/17/16 Time of Evaluation: 10:00 - Subjective Subjective: Patient remains stable.Has no fever Still with a lot of pain on the knee No calf pain. Did some therapy. Scheduled for subacute rehab. Objective - Vital Signs/Intake and Output Vital Signs (last 24 hours): Temp Pulse Resp BP Pulse Ox 97.7 F 75 20 111/65 97 09/17/16 07:58 09/17/16 07:58 09/17/16 07:58 09/17/16 09:06 09/17/16 07:58 - Medications Medications: Current Medications Acetaminophen (Tylenol 325mg Tab) 650 mg PO Q4 PRN PRN Reason: Pain, Mild (1-3) Amlodipine Besylate (Norvasc) 5 mg PO DAILY [facility] Last Admin: 09/17/16 09:06 Dose: 5 mg Atorvastatin Calcium (Lipitor) 40 mg PO HS [facility] Last Admin: 09/16/16 21:44 Dose: 40 mg Docusate Sodium (Colace) 100 mg PO BID [facility] Last Admin: 09/17/16 09:05 Dose: 100 mg Donepezil HCl (Aricept) 5 mg PO HS [facility] Last Admin: 09/16/16 21:44 Dose: 5 mg Enoxaparin Sodium (Lovenox) 40 mg SC DAILY [facility] PRN Reason: Protocol Last Admin: 09/17/16 09:07 Dose: 40 mg Hydrochlorothiazide (Microzide) 12.5 mg PO DAILY [facility] Last Admin: 09/17/16 09:06 Dose: 12.5 mg Insulin Human Regular (Humulin R) 0 units SC [facility] PRN Reason: Protocol Last Admin: 09/17/16 07:30 Dose: Not Given Lorazepam (Ativan) 1 mg PO BID PRN PRN Reason: Agitation Meclizine HCl (Antivert) 25 mg PO Q6 PRN PRN Reason: Nausea/Vomiting [facility]) [facility] [place] Last Admin: 09/17/16 09:05 Dose: 500 mg Naproxen (Naprosyn Tab) 375 mg PO BID PRN PRN Reason: pain Last Admin: 09/17/16 02:22 Dose: 375 mg Sitagliptin Phosphate (Januvia) 100 mg PO DAILY [facility] Last Admin: 09/17/16 09:06 Dose: 100 mg Valsartan (Diovan) 160 mg PO DAILY [facility] Last Admin: 09/17/16 09:06 Dose: 160 mg - Labs Labs: 09/17/16 07:30 09/17/16 07:30 PT 10.6 SECONDS (9.6-11.2) 09/13/16 20:30 INR 1.02 (0.92-1.08) 09/13/16 20:30 APTT 27.9 SECONDS (23.3-32.5) 09/13/16 20:30 - Head Exam Head Exam: NORMAL INSPECTION - Eye Exam Eye Exam: Normal appearance - ENT Exam ENT Exam: Mucous Membranes Moist - Respiratory Exam Respiratory Exam: Clear to Ausculation Bilateral - GI/Abdominal Exam GI & Abdominal Exam: Normal Bowel Sounds - Psychiatric Exam Psychiatric exam: Normal Mood - Skin Skin Exam: Dry Assessment and Plan (1) Ankle fracture, bimalleolar, closed Status: Acute (2) Diabetes mellitus type 2 in nonobese Status: Acute (3) Hypertension Status: Acute (4) Dementia Status: Acute - Assessment and Plan (Free Text) Plan: Con t meds Cont pain meds cont PT subacute rehab.
[2016-09-18] MEDS: Enoxaparin 40 mg Syringe SC SCH (08:33)
[2016-09-18] MEDS: Insulin Regular 100 units/ml SC SCH ×4 (08:34→21:50)
--- NOTE | 2016-09-18 21:39 | CP.PCM.PN ---
Subjective - Date & Time of Evaluation Date of Evaluation: 09/18/16 Time of Evaluation: 09:30 - Subjective Subjective: Patient remains stable Has no chest pain or SOB Afebrile. Has minimal pain on op site. Objective - Vital Signs/Intake and Output Vital Signs (last 24 hours): Temp Pulse Resp BP Pulse Ox 98.4 F 70 20 114/76 96 09/18/16 21:20 09/18/16 21:20 09/18/16 21:20 09/18/16 21:20 09/18/16 21:20 - Medications Medications: Current Medications Acetaminophen (Tylenol 325mg Tab) 650 mg PO Q4 PRN PRN Reason: Pain, Mild (1-3) Last Admin: 09/18/16 20:13 Dose: 650 mg Amlodipine Besylate (Norvasc) 5 mg PO DAILY [facility] Last Admin: 09/18/16 08:36 Dose: 5 mg Atorvastatin Calcium (Lipitor) 40 mg PO HS [facility] Last Admin: 09/17/16 21:07 Dose: 40 mg Docusate Sodium (Colace) 100 mg PO BID [facility] Last Admin: 09/18/16 16:51 Dose: 100 mg Donepezil HCl (Aricept) 5 mg PO [facility] Last Admin: 09/17/16 21:07 Dose: 5 mg Enoxaparin Sodium (Lovenox) 40 mg SC DAILY [facility] PRN Reason: Protocol Last Admin: 09/18/16 08:33 Dose: 40 mg Hydrochlorothiazide (Microzide) 12.5 mg PO DAILY [facility] Last Admin: 09/18/16 08:36 Dose: 12.5 mg Insulin Human Regular (Humulin R) 0 units SC [facility] PRN Reason: Protocol Last Admin: 09/18/16 16:51 Dose: Not Given Lorazepam (Ativan) 1 mg PO BID PRN PRN Reason: Agitation Meclizine HCl (Antivert) 25 mg PO Q6 PRN PRN Reason: Nausea/Vomiting Last Admin: 09/17/16 12:41 Dose: 25 mg Metformin [facility] (Glucophage) [facility] [place] [facility] [place] Last Admin: 09/18/16 16:51 Dose: 500 mg Naproxen (Naprosyn Tab) 375 mg PO BID PRN PRN Reason: pain Last Admin: 09/17/16 02:22 Dose: 375 mg Sitagliptin Phosphate (Januvia) 100 mg PO DAILY [facility] Last Admin: 09/18/16 08:34 Dose: 100 mg Valsartan (Diovan) 160 mg PO DAILY [facility] Last Admin: 09/18/16 08:35 Dose: 160 mg - Labs Labs: 09/17/16 07:30 09/17/16 07:30 PT 10.6 SECONDS (9.6-11.2) 09/13/16 20:30 INR 1.02 (0.92-1.08) 09/13/16 20:30 APTT 27.9 SECONDS (23.3-32.5) 09/13/16 20:30 - Head Exam Head Exam: NORMAL INSPECTION - Eye Exam Eye Exam: Normal appearance - ENT Exam ENT Exam: Mucous Membranes Moist - Respiratory Exam Respiratory Exam: Clear to Ausculation Bilateral - Cardiovascular Exam Cardiovascular Exam: REGULAR RHYTHM - GI/Abdominal Exam GI & Abdominal Exam: Normal Bowel Sounds - Extremities Exam Extremities Exam: Normal Capillary Refill - Neurological Exam Neurological Exam: Awake, CN II-XII Intact Assessment and Plan (1) Ankle fracture, bimalleolar, closed Status: Acute (2) Diabetes mellitus type 2 in nonobese Status: Acute (3) Hypertension Status: Acute (4) Dementia Status: Acute - Assessment and Plan (Free Text) Plan: Cont meds Cont tx Cont PT subacute rehab
[2016-09-19] MEDS: Insulin Regular 100 units/ml SC SCH ×4 (06:55→21:51)
[2016-09-19] MEDS: Enoxaparin 40 mg Syringe SC SCH (08:27)
--- NOTE | 2016-09-19 10:02 | CP.PCM.PN ---
Subjective - Date & Time of Evaluation Date of Evaluation: 09/19/16 Time of Evaluation: 10:01 - Subjective Subjective: Complains of dizziness Still with no placement for subacute rehab Has minimal pain on the op site Has no fever. Objective - Vital Signs/Intake and Output Vital Signs (last 24 hours): Temp Pulse Resp BP Pulse Ox 98.0 F 76 20 127/68 96 09/19/16 07:32 09/19/16 08:30 09/19/16 07:32 09/19/16 08:30 09/19/16 07:32 - Medications Medications: Current Medications Acetaminophen (Tylenol 325mg Tab) 650 mg PO Q4 PRN PRN Reason: Pain, Mild (1-3) Last Admin: 09/18/16 20:13 Dose: 650 mg Amlodipine Besylate (Norvasc) 5 mg PO DAILY [facility] Last Admin: 09/19/16 08:30 Dose: 5 mg Atorvastatin Calcium (Lipitor) 40 mg PO HS [facility] Last Admin: 09/18/16 21:50 Dose: 40 mg Docusate Sodium (Colace) 100 mg PO BID [facility] Last Admin: 09/19/16 08:29 Dose: 100 mg Donepezil HCl (Aricept) 5 mg PO [facility] Last Admin: 09/18/16 21:50 Dose: 5 mg Enoxaparin Sodium (Lovenox) 40 mg SC DAILY [facility] PRN Reason: Protocol Last Admin: 09/19/16 08:27 Dose: 40 mg Hydrochlorothiazide (Microzide) 12.5 mg PO DAILY [facility] Last Admin: 09/19/16 08:29 Dose: 12.5 mg Insulin Human Regular (Humulin R) 0 units SC [facility] PRN Reason: Protocol Last Admin: 09/19/16 06:55 Dose: Not Given Lorazepam (Ativan) 1 mg PO BID PRN PRN Reason: Agitation Meclizine HCl (Antivert) 25 mg PO Q6 PRN PRN Reason: Nausea/Vomiting Last Admin: 09/19/16 08:29 Dose: 25 mg Metformin HCl (Glucophage) [facility] [place] Last Admin: 09/19/16 08:28 Dose: 500 mg Naproxen (Naprosyn Tab) 375 mg PO BID PRN PRN Reason: pain Last Admin: 09/17/16 02:22 Dose: 375 mg Sitagliptin Phosphate (Januvia) 100 mg PO DAILY [facility] Last Admin: 09/19/16 08:29 Dose: 100 mg Valsartan (Diovan) 160 mg PO DAILY [facility] Last Admin: 09/19/16 08:28 Dose: 160 mg - Labs Labs: 09/17/16 07:30 09/17/16 07:30 PT 10.6 SECONDS (9.6-11.2) 09/13/16 20:30 INR 1.02 (0.92-1.08) 09/13/16 20:30 APTT 27.9 SECONDS (23.3-32.5) 09/13/16 20:30 - Head Exam Head Exam: NORMAL INSPECTION - Eye Exam Eye Exam: Normal appearance - ENT Exam ENT Exam: Mucous Membranes Moist - Respiratory Exam Respiratory Exam: Clear to Ausculation Bilateral - Cardiovascular Exam Cardiovascular Exam: REGULAR RHYTHM - GI/Abdominal Exam GI & Abdominal Exam: Normal Bowel Sounds - Neurological Exam Neurological Exam: CN II-XII Intact, Oriented x3 Assessment and Plan (1) Ankle fracture, bimalleolar, closed Status: Acute (2) Diabetes mellitus type 2 in nonobese Status: Acute (3) Hypertension Status: Acute (4) Dementia Status: Acute - Assessment and Plan (Free Text) Plan: Cont meds Cont tx Cont PT subacute rehab.
[2016-09-20] MEDS: Insulin Regular 100 units/ml SC SCH ×2 (06:53→13:21)
[2016-09-20 07:54] VITALS: RESP 20; O2SAT 98
[2016-09-20] MEDS: Enoxaparin 40 mg Syringe SC SCH ×2 (09:31→09:33)
[2016-09-20 11:01] LABS: HEMATOCRIT 39.9 % (34.0-47.0); MEAN CELL VOLUME 86.9 fl (81.0-99.0); MEAN CORPUSCULAR HEMOGLOBIN 28.8 pg (27.0-31.0); MEAN CORPUSCULAR HGB CONC 33.1 g/dL (33.0-37.0); RED CELL DISTRIBUTION WIDTH 13.3 % (11.5-14.5); WHITE BLOOD COUNT 10.1 K/uL (4.8-10.8)
[2016-09-20 11:11] LABS: CALCIUM 9.6 mg/dL (8.4-10.2); POTASSIUM 4.1 MMOL/L (3.6-5.0)
[2016-09-20 13:39] VITALS: TEMP 98.6
[2016-09-20 13:40] VITALS: BP 102/62; PULSE 76
--- NOTE | 2016-09-20 13:59 | CP.PCM.PCO ---
Assessment/Plan - Assessment/Plan Assessment (Free Text): Pt stable, in no apparent distress. States she wants to go home. Alert and oriented with periods of forgetfulness. Heart S1S2, lungs clear, abdomen soft non-tender. RLE with thea dressing intact. Pt tolerated PT and was able to do stairs, however needs assistance. Pt has been denied SUZY by insurance despite multiple recommendations by PT. Pt and family do not want pt to go to LT assisted. Pt states she lives with a friend and her disabled son. Pt's friend and son at bedside, they do not work and are able to assist pt at home. Pt has been referred for VNS, home PT and child caregiver private home services 3 days/ week for 2 hours each day by CM. Pt was given a walker by CM. Spoke to pt's other son Maxime ([phone]), made him aware of d/c plan and f/u MD visits. He is aware and will f/u with ortho and PMD. He also states he will be going to pt's house to assist. Dr. Soriano aware of plan, has cleared pt for d/c home. RN aware of plan. - Problems Patient Problems: Problem List (Active/Current) Problem Status Onset Code Dementia Acute F03.90 Diabetes mellitus type 2 in nonobese Acute E11.9 Hypertension Acute I10
== END 2016-09-20 15:08 | disposition home or self-care (01) | DRG 494 ==
LOC: H.OPSURG 07:22 → H.MEDSURG1 12:47 → OBSVTOIN 09-14 12:47 → H.MEDSURG1 09-14 18:04
PROVIDERS: ADMIT Family Medicine; ATTEND Family Medicine
PROC: 3E0T3BZ Introduction of Anesthetic Agent into Peripheral Nerves and Plexi, Percutaneous Approach (ICD-10-PCS; 2016-09-13)
PROC: 0QSJ04Z Reposition Right Fibula with Internal Fixation Device, Open Approach (ICD-10-PCS; principal; 2016-09-13 11:00)
PROC: 0QSG04Z Reposition Right Tibia with Internal Fixation Device, Open Approach (ICD-10-PCS; 2016-09-13 11:00)
PROC: 3E0234Z Introduction of Serum, Toxoid and Vaccine into Muscle, Percutaneous Approach (ICD-10-PCS; 2016-09-14)
DX: S82.841A Displaced bimalleolar fracture of right lower leg, initial encounter for closed fracture (principal); F03.90 Unspecified dementia, unspecified severity, without behavioral disturbance, psychotic disturbance, mood disturbance, and anxiety; E11.9 Type 2 diabetes mellitus without complications; W01.0XXA Fall on same level from slipping, tripping and stumbling without subsequent striking against object, initial encounter; I10 Essential (primary) hypertension; Y93.9 Activity, unspecified; Y92.9 Unspecified place or not applicable; E78.5 Hyperlipidemia, unspecified; M79.651 Pain in right thigh; Z23 Encounter for immunization